=== PATIENT | male | born 1980 | race Caucasian/White ===

== ENCOUNTER 2023-11-11 16:31 | Emergency (ER) | payer MEDICAID ==
[~2023-11-11] VITALS: Ht 177.8 cm; Wt 74.4 kg
[~2023-11-11 16:31] MED LIST: NO HOME MEDS
[2023-11-11 16:45] VITALS: BP 126/81; PULSE 91; RESP 18; TEMP 97.8; O2SAT 98
[2023-11-11] MEDS: cephalexin 250mg capsule PO ONE (17:40)
[2023-11-11] MEDS ORDERED: CEPH-585 PO (17:53)
== END 2023-11-11 18:32 | disposition home or self-care (01) ==
LOC: ER 16:32
DX: S62.637A Displaced fracture of distal phalanx of left little finger, initial encounter for closed fracture (principal); I10 Essential (primary) hypertension; Z79.2 Long term (current) use of antibiotics; X58.XXXA Exposure to other specified factors, initial encounter; Y93.89 Activity, other specified; Y92.89 Other specified places as the place of occurrence of the external cause; Y99.8 Other external cause status
CPT/HCPCS: 73130; 99283; A6449